=== PATIENT | male | born 1990 | race Caucasian/White ===

== ENCOUNTER 2021-03-01 16:50 | Emergency (ER) | payer OTHER ==
[2021-03-01 17:15] VITALS: BP 122/72; PULSE 85; TEMP 98; BMI 19.8
== END 2021-03-01 18:05 | disposition home or self-care (01) ==
LOC: JER 16:50
DX: J11.1 Influenza due to unidentified influenza virus with other respiratory manifestations (principal)
CPT/HCPCS: 87804; 99283-25; C9803; U0003; U0005

== ENCOUNTER 2021-03-15 15:07 | Emergency (ER) | payer OTHER ==
[2021-03-15 15:31] VITALS: BP 111/64; PULSE 52; TEMP 98.1; BMI 20.5
== END 2021-03-15 16:39 | disposition home or self-care (01) ==
LOC: JER 15:07
DX: Z11.52 Encounter for screening for COVID-19 (principal)
CPT/HCPCS: 99283-25; C9803; U0003; U0005